=== PATIENT | male | born 1945 | race Two or more races ===

== ENCOUNTER 2021-09-19 05:32 | Day surgery (SDC) | payer OTHER ==
[~2021-09-19] VITALS: Ht 165.1 cm; Wt 70.3 kg
[~2021-09-19 05:32] MED LIST: BENICAR HCT 401 EAC1 PO; NIFEDIPINE20 MG PO
[2021-09-19] MEDS ORDERED: ULTRACET PO (10:35)
== END 2021-09-19 13:50 | disposition home or self-care (01) ==
LOC: CIR.AMB 05:32
PROVIDERS: ATTEND Surgery
DX: C20 Malignant neoplasm of rectum (principal); Z88.0 Allergy status to penicillin; I10 Essential (primary) hypertension

== ENCOUNTER 2022-06-03 10:23 | Inpatient (IN) | payer OTHER ==
[~2022-06-03] VITALS: Ht 152.4 cm; Wt 68.0 kg
[~2022-06-03 10:23] MED LIST changes: +ULTRACET PO
[2022-06-08] MEDS ORDERED: FAMOTIDINE20 MG (08:05)
[2022-06-08] MEDS ORDERED: ATORVASTATIN CA40 MG (08:05)
[2022-06-08] MEDS ORDERED: PANTOPRAZOLE SO20 MG (08:05)
[2022-06-08] MEDS ORDERED: EZETIMIBE10 MG (08:05)
[2022-06-27] MEDS ORDERED: LOPERAMIDE2 MG PO (13:31)
[2022-06-27] MEDS ORDERED: OXYCODONE HCL5 MG PO (13:31)
== END 2022-06-27 15:19 | disposition home or self-care (01) | DRG 329 ==
LOC: SURH 06-08 05:16 → O/R 06-08 05:16 → SURH 06-08 09:55
PROVIDERS: ADMIT Surgery; ATTEND Surgery
PROC: 0DTP4ZZ Resection of Rectum, Percutaneous Endoscopic Approach (ICD-10-PCS; 2022-06-08)
PROC: 0DBN4ZZ Excision of Sigmoid Colon, Percutaneous Endoscopic Approach (ICD-10-PCS; 2022-06-08)
PROC: 07BC3ZZ Excision of Pelvis Lymphatic, Percutaneous Approach (ICD-10-PCS; 2022-06-08)
PROC: 0DJD8ZZ Inspection of Lower Intestinal Tract, Via Natural or Artificial Opening Endoscopic (ICD-10-PCS; 2022-06-08)
PROC: 0D1B4Z4 Bypass Ileum to Cutaneous, Percutaneous Endoscopic Approach (ICD-10-PCS; principal; 2022-06-08 09:55)
PROC: 5A0955A Assistance with Respiratory Ventilation, Greater than 96 Consecutive Hours, High Flow/Velocity Cannula (ICD-10-PCS; 2022-06-11)
PROC: 0D9670Z Drainage of Stomach with Drainage Device, Via Natural or Artificial Opening (ICD-10-PCS; 2022-06-12)
PROC: 4A12X4Z Monitoring of Cardiac Electrical Activity, External Approach (ICD-10-PCS; 2022-06-12)
PROC: 05HY33Z Insertion of Infusion Device into Upper Vein, Percutaneous Approach (ICD-10-PCS; 2022-06-16)
DX: C20 Malignant neoplasm of rectum (principal); J18.1 Lobar pneumonia, unspecified organism; J95.89 Other postprocedural complications and disorders of respiratory system, not elsewhere classified; K91.89 Other postprocedural complications and disorders of digestive system; K56.7 Ileus, unspecified; N17.9 Acute kidney failure, unspecified; R59.0 Localized enlarged lymph nodes; I10 Essential (primary) hypertension

== ENCOUNTER 2022-10-06 11:55 | Inpatient (IN) | payer OTHER ==
[~2022-10-06] VITALS: Ht 165.1 cm; Wt 67.1 kg
[~2022-10-06 11:55] MED LIST changes: +ATORVASTATIN CA40 MG; +EZETIMIBE10 MG; +FAMOTIDINE20 MG; +LOPERAMIDE2 MG PO; +OXYCODONE HCL5 MG PO; +PANTOPRAZOLE SO20 MG
[2022-10-16] MEDS ORDERED: TRAM1TAB98 PO (12:53)
[2022-10-16] MEDS ORDERED: PEPCID AC20 MG PO (12:53)
== END 2022-10-16 15:17 | disposition home or self-care (01) | DRG 349 ==
LOC: SURH 10-12 07:00 → O/R 10-12 07:22 → SURH 10-12 09:15
PROVIDERS: ADMIT Surgery; ATTEND Surgery
PROC: 0JPT0WZ Removal of Totally Implantable Vascular Access Device from Trunk Subcutaneous Tissue and Fascia, Open Approach (ICD-10-PCS; 2022-10-12)
PROC: 0DBB4ZZ Excision of Ileum, Percutaneous Endoscopic Approach (ICD-10-PCS; principal; 2022-10-12 07:00)
DX: C20 Malignant neoplasm of rectum (principal); R59.0 Localized enlarged lymph nodes; K66.0 Peritoneal adhesions (postprocedural) (postinfection); I10 Essential (primary) hypertension